=== PATIENT | female | born 1945 | race Caucasian/White ===

== ENCOUNTER 2017-02-13 07:35 | Day surgery (SDC) | payer MEDICARE ==
[2017-02-06 15:25] VITALS: BMI 26.6
[~2017-02-13 07:35] MED LIST: DEXAMETHASONE SOD PHOSPHATE 10 MG/ML 1 ML VIAL IV ONE; HEPARIN SODIUM,PORCINE 5,000 UNIT/ML 1 ML VIAL SQ ONE; LACTATED RINGERS 1,000 ML IV SCH; LIDOCAINE 1% 20 ML VIAL (10MG/ML) FOR IV START INTRADERMA PRN; MIDAZOLAM 2 MG/2 ML VIAL IV PRN; ONDANSETRON 4 MG/2 ML VIAL IVP ONE; Pre Op ABX Message 1 EACH MISC MISCELLANE ONE; SCOPOLAMINE 1.5MG/72HR PATCH TRANSDERM ONE
[2017-02-13 08:28] VITALS: RESP 16
[2017-02-13] MEDS ORDERED: LIDOCAINE 1% 20 ML VIAL (10MG/ML) FOR IV START INTRADERMA ONE (09:10)
--- NOTE | 2017-02-13 09:13 | P.GSHP ---
History of Present Illness H&P Date: 02/13/17 Chief Complaint: Back lipoma This is a 71-year-old female who presents today for excision of a back lipoma. Patient has a 1 cm lipoma located in her mid left back. The lipomas causing some pain. Past Medical History Past Medical History: Hearing Disorder / Deafness, Rheumatoid Arthritis (RA) Additional Past Medical History / Comment(s): Dry eyes, perforated ear drums/ poor hearing bilaterally. History of Any Multi-Drug Resistant Organisms: None Reported Past Surgical History: Breast Surgery, Cholecystectomy, Ear Surgery, Hysterectomy, Orthopedic Surgery, Tonsillectomy, Tubal Ligation Additional Past Surgical History / Comment(s): Multiple ear and sinus surgeries , D&C, 2 breast lumpectomies, left rotator cuff surgery, colonoscopy X2. Eye surgery - lens implants. Additional Past Anesthesia/Blood Transfusion Reaction / Comment(s): Has had low BP after anesthesia in the past. Past Psychological History: No Psychological Hx Reported Smoking Status: Former smoker Past Alcohol Use History: Daily Additional Past Alcohol Use History / Comment(s): Smoked on and off for a couple yrs when really young, can't recall dates. Drinks 2 glasses of wine or has a shot of duane on most nights. Past Drug Use History: None Reported - Past Family History Brother(s) Family Medical History: Cancer Additional Family Medical History / Comment(s): Brain Cancer Medications and Allergies Home Medications Medication Instructions Recorded Confirmed Type Amitriptyline HCl [Elavil] 10 mg PO HS 07/05/14 02/13/17 History Calcium Carbonate/Vitamin D3 1 each PO DAILY 07/05/14 02/13/17 History [Calcium 600 + Vit D Tablet] Cholecalciferol [Vitamin D3] 1,000 unit PO DAILY 07/05/14 02/13/17 History Clotrimazole/Betameth Cream 1 applic TOPICAL BID PRN 07/05/14 02/13/17 History [Clotrimazole-Betamethasone Cream] Multivitamins, Thera [Multivitamin] 1 each PO DAILY@1200 07/05/14 02/06/17 History Zolpidem [Ambien] 5 mg PO HS 07/05/14 02/13/17 History Levofloxacin [Levaquin] 250 mg PO DAILY 02/06/17 02/13/17 History Loratadine [Claritin] 10 mg PO QAM 02/06/17 02/13/17 History Allergies Allergy/AdvReac Type Severity Reaction Status Date / Time amoxicillin trihydrate Allergy Unknown Verified 02/13/17 08:29 [From Augmentin] ceftriaxone [From Rocephin] Allergy Rash/Hives Verified 02/13/17 08:29 cefuroxime axetil Allergy Unknown Verified 02/13/17 08:29 [From Ceftin] cephalexin monohydrate Allergy Unknown Verified 02/13/17 08:29 [From Keflex] clarithromycin [From Biaxin] Allergy Unknown Verified 02/13/17 08:29 codeine Allergy Unknown Verified 02/13/17 08:29 cyclobenzaprine HCl Allergy Unknown Verified 02/13/17 08:29 [From Flexeril] doxycycline Allergy Unknown Verified 02/13/17 08:29 hydrocodone Allergy Unknown Verified 02/13/17 08:29 hydromorphone HCl Allergy Unknown Verified 02/13/17 08:29 [From Dilaudid] methotrexate Allergy Unknown Verified 02/13/17 08:29 morphine Allergy Unknown Verified 02/13/17 08:29 moxifloxacin HCl Allergy Unknown Verified 02/13/17 08:29 [From Avelox] Mushroom Allergy Swelling Verified 02/13/17 08:29 orphenadrine citrate Allergy Unknown Verified 02/13/17 08:29 [From Norflex] potassium clavulanate Allergy Unknown Verified 02/13/17 08:29 [From Augmentin] propoxyphene HCl Allergy Unknown Verified 02/13/17 08:29 [From Darvon] propoxyphene napsylate Allergy Unknown Verified 02/13/17 08:29 [From Darvocet-N] sulfamethoxazole Allergy Unknown Verified 02/13/17 08:29 [From Bactrim] tramadol Allergy Unknown Verified 02/13/17 08:29 trimethoprim [From Bactrim] Allergy Unknown Verified 02/13/17 08:29 venom-honey bee Allergy Unknown Verified 02/13/17 08:29 [bee venom (honey bee)] lartine Allergy Unknown Uncoded 02/13/17 08:29 Surgical - Exam Vital Signs Temp Pulse Resp BP Pulse Ox 98.1 F 61 16 111/68 100 02/13/17 08:23 02/13/17 08:23 02/13/17 08:23 02/13/17 08:23 02/13/17 08:23 - General well developed, no distress - Eyes PERRL - ENT normal pinna - Neck no masses - Respiratory normal expansion - Cardiovascular Rhythm: regular - Abdomen Abdomen: soft, non tender - Integumentary 1 cm back lipoma Assessment and Plan Plan: 1 cm back lipoma we'll perform excision.
[2017-02-13] MEDS ORDERED: ePHEDrine 50 MG/ML 1 ML AMP ONE (09:26)
[2017-02-13] MEDS ORDERED: SUCCINYLCHOLINE CHLORIDE 100 MG/5 ML SYR IV ONE (09:26)
[2017-02-13] MEDS ORDERED: fentaNYL (PF) 50 MCG/ML 2 ML AMP ONE (09:26)
[2017-02-13] MEDS ORDERED: LIDOCAINE 1% INJ 10MG/ML (20 ML MDV) ONE (09:26)
[2017-02-13] MEDS ORDERED: MIDAZOLAM 2 MG/2 ML VIAL ONE (09:26)
[2017-02-13] MEDS ORDERED: PROPOFOL 10 MG/ML 20 ML VIAL IV ONE (09:26)
[2017-02-13] MEDS ORDERED: BUPIVACAIN-EPI 0.5%-1:200,000 30 ML VIAL SQ ONE (09:53)
--- NOTE | 2017-02-13 10:07 | P.OP ---
Date of Procedure: 02/13/17 Preoperative Diagnosis: Back lipoma Postoperative Diagnosis: Back lipoma Procedure(s) Performed: Excision of back lipoma Implants: Anesthesia: TIFFANI Surgeon: Matthew Chiang Estimated Blood Loss (ml): 2 Pathology: other (Back lipoma) Condition: stable Disposition: PACU Indications for Procedure: Operative Findings: Description of Procedure: Patient's placed on the endoscopy table in the lateral position. She received general and treatment tube anesthesia. Her back was prepped and draped usual fashion. A skin incision was made over the lipoma. And then using blunt and sharp dissection electrocautery the lipoma was excised. The Bovie hemostasis. The lipoma measured approximately 2 cm diameter. The lipoma was sent to pathology. The skin was closed interrupted 3-0 Monocryl suture. Dermabond was applied. Patient sent to recovery in stable condition.
[2017-02-13 10:19] VITALS: TEMP 96.9
[2017-02-13 11:01] VITALS: BP 114/72; PULSE 74
== END 2017-02-13 11:16 | disposition home or self-care (01) ==
LOC: OR 07:35
PROVIDERS: ATTEND Surgery
DX: D17.1 Benign lipomatous neoplasm of skin and subcutaneous tissue of trunk (principal); H91.90 Unspecified hearing loss, unspecified ear; M06.9 Rheumatoid arthritis, unspecified; F39 Unspecified mood [affective] disorder; Z79.2 Long term (current) use of antibiotics; Z79.899 Other long term (current) drug therapy; Z88.1 Allergy status to other antibiotic agents; Z91.030 Bee allergy status; Z88.5 Allergy status to narcotic agent; Z88.2 Allergy status to sulfonamides; Z88.8 Allergy status to other drugs, medicaments and biological substances; Z91.018 Allergy to other foods; Z91.09 Other allergy status, other than to drugs and biological substances; Z87.891 Personal history of nicotine dependence
CPT/HCPCS: 88304; 21930; J2250; J1644; J1100; J2405; J2001; J3010; J0330; J2704

== ENCOUNTER 2017-04-16 06:27 | Day surgery (SDC) | payer MEDICARE ==
[2017-04-14 11:17] VITALS: BMI 26.1
[~2017-04-16 06:27] MED LIST changes: -DEXAMETHASONE SOD PHOSPHATE 10 MG/ML 1 ML VIAL IV ONE; -HEPARIN SODIUM,PORCINE 5,000 UNIT/ML 1 ML VIAL SQ ONE; -MIDAZOLAM 2 MG/2 ML VIAL IV PRN; -ONDANSETRON 4 MG/2 ML VIAL IVP ONE; -Pre Op ABX Message 1 EACH MISC MISCELLANE ONE; -SCOPOLAMINE 1.5MG/72HR PATCH TRANSDERM ONE
[2017-04-16 07:18] VITALS: TEMP 98.6
[2017-04-16] MEDS ORDERED: PROPOFOL 10 MG/ML 20 ML VIAL IV ONE (07:35)
--- NOTE | 2017-04-16 07:50 | P.GSHP ---
History of Present Illness H&P Date: 04/16/17 Chief Complaint: Screening colonoscopy This is a 71-year-old female for from Dr. Bandar Candelario. Patient safe for screening colonoscopy. Past Medical History Past Medical History: Hearing Disorder / Deafness, Rheumatoid Arthritis (RA) Additional Past Medical History / Comment(s): STATES ON ANTIBIOTICS R/T EAR AND SINUS INFECTION. Dry eyes, perforated ear drums/poor hearing bilaterally. History of Any Multi-Drug Resistant Organisms: None Reported Past Surgical History: Breast Surgery, Cholecystectomy, Ear Surgery, Hysterectomy, Orthopedic Surgery, Tonsillectomy, Tubal Ligation Additional Past Surgical History / Comment(s): Multiple ear and sinus surgeries , D&C, 2 breast lumpectomies, left rotator cuff surgery, colonoscopy X2. Eye surgery - lens implants. SINUS SX X2, "LUMP" REMOVED FROM BACK BENIGN Additional Past Anesthesia/Blood Transfusion Reaction / Comment(s): Has had low BP after anesthesia in the past. HAD NAUSEA PRE OP Past Psychological History: No Psychological Hx Reported Smoking Status: Never smoker Past Alcohol Use History: Daily Additional Past Alcohol Use History / Comment(s): Smoked on and off for a couple yrs when really young, can't recall dates. HAS 2 GLASSES OF WINE NIGHTLY Past Drug Use History: None Reported - Past Family History Brother(s) Family Medical History: Cancer Additional Family Medical History / Comment(s): Brain Cancer Medications and Allergies Home Medications Medication Instructions Recorded Confirmed Type Amitriptyline HCl [Elavil] 10 mg PO HS 07/05/14 04/16/17 History Calcium Carbonate/Vitamin D3 1 each PO DAILY 07/05/14 04/16/17 History [Calcium 600 + Vit D Tablet] Multivitamins, Thera [Multivitamin] 1 each PO DAILY@1200 07/05/14 04/16/17 History Zolpidem [Ambien] 5 mg PO HS 07/05/14 04/16/17 History Loratadine [Claritin] 10 mg PO QAM 02/06/17 04/16/17 History Levofloxacin [Levaquin] 500 mg PO DAILY 04/14/17 04/16/17 History Allergies Allergy/AdvReac Type Severity Reaction Status Date / Time amoxicillin trihydrate Allergy Unknown Verified 04/14/17 11:12 [From Augmentin] ceftriaxone [From Rocephin] Allergy Rash/Hives Verified 04/14/17 11:12 cefuroxime axetil Allergy Unknown Verified 04/14/17 11:12 [From Ceftin] cephalexin monohydrate Allergy Unknown Verified 04/14/17 11:12 [From Keflex] clarithromycin [From Biaxin] Allergy Unknown Verified 04/14/17 11:12 codeine Allergy Unknown Verified 04/14/17 11:12 cyclobenzaprine Allergy Swelling Verified 04/16/17 07:07 [From Flexeril] doxycycline Allergy Unknown Verified 04/14/17 11:12 hydrocodone Allergy Unknown Verified 04/14/17 11:12 hydromorphone [From Dilaudid] Allergy Swelling Verified 04/16/17 07:07 methotrexate Allergy Unknown Verified 04/14/17 11:12 Methotrexate Analogues Allergy Swelling Verified 04/16/17 07:07 morphine Allergy Swelling Verified 04/16/17 07:08 moxifloxacin [From Avelox] Allergy Swelling Verified 04/16/17 07:07 Mushroom Allergy Swelling Verified 04/14/17 11:12 orphenadrine [From Norflex] Allergy Swelling Verified 04/16/17 07:07 potassium clavulanate Allergy Unknown Verified 04/14/17 11:12 [From Augmentin] propoxyphene [From Darvon] Allergy Swelling Verified 04/16/17 07:07 propoxyphene napsylate Allergy Unknown Verified 04/14/17 11:12 [From Darvocet-N] tramadol Allergy Unknown Verified 04/14/17 11:12 trimethoprim [From Bactrim] Allergy Unknown Verified 04/14/17 11:12 venom-honey bee Allergy Unknown Verified 04/14/17 11:12 [bee venom (honey bee)] lartine Allergy Unknown Uncoded 04/14/17 11:12 BANDAIDS AdvReac SKIN Uncoded 04/14/17 11:21 CHANGES Surgical - Exam Vital Signs Temp Pulse Resp BP Pulse Ox 98.6 F 59 L 14 105/71 98 04/16/17 07:16 04/16/17 07:16 04/16/17 07:16 04/16/17 07:16 04/16/17 07:16 - General well developed, no distress - Eyes PERRL - ENT normal pinna - Neck no masses - Respiratory normal expansion - Cardiovascular Rhythm: regular - Abdomen Abdomen: soft, non tender Assessment and Plan Plan: We will perform screening colonoscopy
--- NOTE | 2017-04-16 08:05 | P.OP ---
Date of Procedure: 04/16/17 Preoperative Diagnosis: Screening colonoscopy Postoperative Diagnosis: Internal hemorrhoids Procedure(s) Performed: Colonoscopy Implants: Anesthesia: MAC Surgeon: Matthew Chiang Pathology: none sent Condition: stable Disposition: PACU Indications for Procedure: Operative Findings: Description of Procedure: The patient's placed on the endoscopy table in the lateral position. She received IV sedation. Digital rectal exam was performed which revealed internal hemorrhoids. The flexible colonoscope was then placed patient anus passed throughout the entire colon. The ileocecal valve was visualized. The cecum, ascending and transverse colon appeared normal. The descending and; appeared normal. Scope was then brought back the rectum and this appeared normal. Scope was then brought back through the anus and internal hemorrhoids were noted. Scope was withdrawn for patient.
[2017-04-16 08:24] VITALS: RESP 16
[2017-04-16 08:42] VITALS: BP 98/63; PULSE 75
== END 2017-04-16 08:47 | disposition home or self-care (01) ==
LOC: ORWHC2ENDO 06:27 → MERGE 07:45 → ORWHC2ENDO 08:47
PROVIDERS: ATTEND Surgery
DX: Z12.11 Encounter for screening for malignant neoplasm of colon (principal); K64.8 Other hemorrhoids; Z87.891 Personal history of nicotine dependence; H91.90 Unspecified hearing loss, unspecified ear; M06.9 Rheumatoid arthritis, unspecified; Z79.2 Long term (current) use of antibiotics; Z79.899 Other long term (current) drug therapy; Z88.1 Allergy status to other antibiotic agents; Z91.030 Bee allergy status; Z88.5 Allergy status to narcotic agent; Z88.0 Allergy status to penicillin; Z88.8 Allergy status to other drugs, medicaments and biological substances; Z91.018 Allergy to other foods; Z91.09 Other allergy status, other than to drugs and biological substances
CPT/HCPCS: J2704; G0121; 45378

== ENCOUNTER → 2017-12-24 | Outpatient (CLI) | payer MEDICARE ==
[2017-12-24 09:35] VITALS: BP 113/81; PULSE 65; TEMP 97.6; BMI 20.8
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
== END | disposition home or self-care (01) ==
LOC: WWCWWP 09:16
PROVIDERS: ATTEND Surgery
DX: R92.8 Other abnormal and inconclusive findings on diagnostic imaging of breast (principal); Z53.9 Procedure and treatment not carried out, unspecified reason

== ENCOUNTER → 2017-12-24 | Outpatient (CLI) | payer MEDICARE | LOC: WWCWWP 09:20 | PROVIDERS: ATTEND Surgery | DX: N63.22 Unspecified lump in the left breast, upper inner quadrant (principal); Z53.9 Procedure and treatment not carried out, unspecified reason ==

== ENCOUNTER → 2017-12-28 | Day surgery (SDC) | payer MEDICARE ==
[2017-12-28 11:20] VITALS: RESP 16; TEMP 97.9; BMI 25.6
[2017-12-28 13:17] VITALS: BP 145/79; PULSE 54
--- NOTE | 2017-12-28 16:09 | USB ---
EXAMINATION TYPE: US biopsy breast VAD LT, MG diagnostic mammo LT wo CAD DATE OF EXAM: 12/28/2017 CLINICAL HISTORY: 72-year-old female N63 BREAST LUMP/MASS. TECHNIQUE: Ultrasound guided core biopsy of left breast. COMPARISON: 11/27/2017 FINDINGS: The procedure of ultrasound guided core biopsy was explained to the patient. Benefits, alternatives, and risks were discussed. An informed consent was then obtained. The patient was placed in supine positioning for imaging and for the procedure. The overlying skin was prepped and draped in usual sterile fashion. Lidocaine buffered with bicarbonate was used as anesthetic into the skin and subcutaneous tissue up to area of concern in the 10:00 left breast. Under ultrasound guidance, a 13-gauge vacuum-assisted mammotome Elite biopsy gun device was used to obtain 5 core samples. Following this, a coil clip was left in lesion. The patient tolerated the procedure well without any immediate complication. The patient was kept in the radiology department for short stay after the procedure and then discharged home in stable condition. Post procedure mammogram shows the microclip far peripherally in the 10:00 left breast at the patient's palpable site. IMPRESSION: Successful, uncomplicated ultrasound guided core biopsy of palpable lesion left breast, suspected lipoma, full pathology results to follow. Pathology Results: Benign LEFT BREAST, ULTRASOUND GUIDED CORE BIOPSY: FEATURES CONSISTENT WITH LIPOMA. BREAST ELEMENTS ARE NOT IDENTIFIED. Recommendation Follow up ultrasound of the left breast in 6 months. RAYMONDD
== END | disposition home or self-care (01) ==
LOC: RADUSWWP 10:55
PROVIDERS: ATTEND Surgery
DX: N63.20 Unspecified lump in the left breast, unspecified quadrant (principal); R92.8 Other abnormal and inconclusive findings on diagnostic imaging of breast
CPT/HCPCS: 88305; 77065; 19083; A4648; J2001

== ENCOUNTER → 2018-01-07 | Outpatient (CLI) | payer MEDICARE ==
[2018-01-07 11:27] VITALS: BP 120/81; PULSE 65; BMI 26.3
--- NOTE | 2018-01-07 12:04 | P.GSHP ---
History of Present Illness H&P Date: 01/07/18 The patient is a 72-year-old white female who presents status post core biopsy of an area of concern in the left breast. The patient states in approximately October she noted a palpable abnormality in her left breast which had not been present prior. This area was painful and she subsequently underwent radiographic evaluation. Radiographic evaluation was recommended she undergo core biopsy of the palpable area. Pathology was consistent with a lipoma. The patient has no other masses in her breast and no nipple discharge or changes. Past surgical history: 1. 18 ear surgeries 2. 2 sinus surgeries 3. Shoulder surgery 4.Cholecystectomy 5. Hysterectomy 6. Tonsillectomy Past medical history: 1. ear ruptured ear drums, perforated now, decreased hearing 2. sinus surgeries times two Review of systems: HEENT: Multiple uterine surgeries related to perforated eardrums, sinus surgery 2 Lungs: None Heart: Negative GI: Negative : Negative Musculoskeletal: Arthritis Skin: Negative Neurologic: Negative Menarche: 11 years old Pregnancies: 1 at the age of 30 and not breast-feed Menopause: Hysterectomy 1979 ovaries were not removed patient was approximately late 30s BCP/Hormones: Has -control pills at a young age regular periods, used to hormones for a short time caused depression so stopped - Constitutional Constitutional: Reports as per HPI - EENT Ears, nose, mouth and throat: Reports as per HPI - Breasts Breasts: bilateral: as per HPI - Cardiovascular Cardiovascular: Denies chest pain, Denies shortness of breath - Respiratory Respiratory: Denies cough, Denies 7 - Gastrointestinal Gastrointestinal: Denies abdominal pain, Denies diarrhea, Denies nausea, Denies vomiting - Musculoskeletal Musculoskeletal: Reports as per HPI - Integumentary Integumentary: Reports as per HPI - Neurological Neurological: Reports as per HPI - Psychiatric Psychiatric: Denies anxiety, Denies depression - Endocrine Endocrine: Denies fatigue, Denies weight change - Hematologic/Lymphatic Comment: no blood thinners - Allergic/Immunologic Allergic/Immunologic: Reports seasonal allergies Past Medical History Past Medical History: Hearing Disorder / Deafness, Rheumatoid Arthritis (RA) Additional Past Medical History / Comment(s): Chronic ear/sinus problems/ infections. Dry eyes, perforated ear drums/poor hearing bilaterally. History of Any Multi-Drug Resistant Organisms: None Reported Past Surgical History: Breast Surgery, Cholecystectomy, Ear Surgery, Hysterectomy, Orthopedic Surgery, Tonsillectomy, Tubal Ligation Additional Past Surgical History / Comment(s): Multiple ear and sinus surgeries , D&C, 2 breast lumpectomies, left rotator cuff surgery, colonoscopy X2. Eye surgery - lens implants. Benign cyst removed from back. Gall bladder removed 1972 Past Anesthesia/Blood Transfusion Reactions: Previous Problems w/ Anesthesia Additional Past Anesthesia/Blood Transfusion Reaction / Comment(s): Has had low BP after anesthesia in the past. Past Psychological History: No Psychological Hx Reported Smoking Status: Never smoker Past Alcohol Use History: Daily Additional Past Alcohol Use History / Comment(s): HAS 2 GLASSES OF WINE NIGHTLY Past Drug Use History: None Reported - Past Family History Brother(s) Family Medical History: Cancer Additional Family Medical History / Comment(s): Brain Cancer Medications and Allergies Home Medications Medication Instructions Recorded Confirmed Type Amitriptyline HCl [Elavil] 10 mg PO HS 07/05/14 01/07/18 History Multivitamins, Thera [Multivitamin] 1 each PO DAILY@1200 07/05/14 01/07/18 History Zolpidem [Ambien] 5 mg PO HS 07/05/14 01/07/18 History Loratadine [Claritin] 10 mg PO QAM 02/06/17 01/07/18 History Cholecalciferol [Vitamin D3] 1 tab PO DAILY 12/25/17 01/07/18 History Allergies Allergy/AdvReac Type Severity Reaction Status Date / Time acetaminophen Allergy Unknown Verified 12/29/17 16:07 [From Darvocet-N] adhesive tape Allergy Rash/Hives Verified 12/29/17 16:07 amoxicillin [From Augmentin] Allergy Unknown Verified 12/29/17 16:07 cefuroxime [From Ceftin] Allergy Unknown Verified 12/29/17 16:07 cephalexin [From Keflex] Allergy Unknown Verified 12/29/17 16:07 clarithromycin [From Biaxin] Allergy Unknown Verified 12/29/17 16:07 clavulanic acid Allergy Unknown Verified 12/29/17 16:07 [From Augmentin] codeine Allergy Unknown Verified 12/29/17 16:07 cyclobenzaprine Allergy Unknown Verified 12/29/17 16:07 [From Flexeril] doxycycline Allergy Unknown Verified 12/29/17 16:07 hydrocodone Allergy Unknown Verified 12/29/17 16:07 hydromorphone [From Dilaudid] Allergy Unknown Verified 12/29/17 16:07 methotrexate Allergy Unknown Verified 12/29/17 16:07 morphine Allergy Unknown Verified 12/29/17 16:07 moxifloxacin [From Avelox] Allergy Unknown Verified 12/29/17 16:07 mushroom Allergy Unknown Verified 12/29/17 16:07 orphenadrine [From Norflex] Allergy Unknown Verified 12/29/17 16:07 propoxyphene [From Darvon] Allergy Unknown Verified 12/29/17 16:07 sulfamethoxazole Allergy Unknown Verified 12/29/17 16:07 [From Bactrim] tramadol Allergy Unknown Verified 12/29/17 16:07 trimethoprim [From Bactrim] Allergy Unknown Verified 12/29/17 16:07 bandaids Allergy Rash/Hives Uncoded 12/29/17 16:07 bee stings Allergy Unknown Uncoded 12/29/17 16:07 lartine Allergy Unknown Uncoded 12/29/17 16:07 Surgical - Exam Vital Signs Pulse BP 65 120/81 01/07/18 11:22 01/07/18 11:22 - General well developed, well nourished, no distress - Eyes normal ocular movement - ENT normal nares, decreased hearing, dentures - Neck no masses, trachea midline, no lymphadectomy, no venous distension - Respiratory normal respiratory effort, clear to auscultation - Cardiovascular Rhythm: regular Heart Sounds: normal: S1, S2 - Abdomen Abdomen: soft, non tender, no guarding, no rigid, no rebound - Neurologic normal coordination - Musculoskeletal normal gait, normal posture - Psychiatric oriented to time, oriented to person, oriented to place, speech is normal, memory intact Breast examination: Bypass: Multiple positional exam no dominant masses or nodules of concern right axilla no adenopathy of concern Left breast: Palpable abnormality at the 9 o'clock position consistent with the area which was biopsied via core biopsy No axillary adenopathy of concern in the left Results core biopsy pathology reviewed with patient Assessment and Plan Assessment: Impression/plan: 1. Left breast mass core biopsy consistent with lipoma 2. Decreased hearing Plan: 1. The area in the left breast is painful for the patient and Onset. It is possible and worrisome for the patient. After discussion that this is not a cancer and who did not progress to a cancer the patient would like this to be removed. She will therefore be scheduled for a left breast excisional biopsy The skin benefits of the procedure discussed with the patient and we will plan to proceed. cc: Dr. Ruelas
--- NOTE | 2018-01-07 12:11 | P.PN ---
Progress Note - Text Progress Note Date: 01/07/18 Risks and benefits were discussed with the patient regarding left breast biopsy. The area is somewhat difficult to palpate although the patient feels that without any difficulty. After discussion I have suggested that we do a needle localization of the area and I will take that which I feel as well as the area of Localization to assure the area of concern is removed. The patient concurs and we will proceed with excisional biopsy. Again I discussed with her that this is not cancer will not turn into cancer however it is symptomatic for her and she wishes it to be removed.
== END | disposition home or self-care (01) ==
LOC: WWCWWP 11:18
PROVIDERS: ATTEND Surgery
DX: Z53.9 Procedure and treatment not carried out, unspecified reason (principal)

== ENCOUNTER 2018-01-19 06:59 | Day surgery (SDC) | payer MEDICARE ==
[2018-01-12 11:40] VITALS: BMI 25.5
[~2018-01-19 06:59] MED LIST changes: -LACTATED RINGERS 1,000 ML IV SCH; -LIDOCAINE 1% 20 ML VIAL (10MG/ML) FOR IV START INTRADERMA PRN; +ONDANSETRON 4 MG/2 ML VIAL IVP PRN; +Pre Op ABX Message 1 EACH MISC MISCELLANE ONE; +fentaNYL (PF) 50 MCG/ML 2 ML AMP IV PRN
[2018-01-19 07:49] VITALS: RESP 16; TEMP 97.6
[2018-01-19] MEDS: LACTATED RINGERS 1,000 ML IV SCH ×2 (07:49→08:30)
[2018-01-19] MEDS ORDERED: ONDANSETRON 4 MG/2 ML VIAL IVP ONE (07:52)
[2018-01-19] MEDS ORDERED: DEXAMETHASONE SOD PHOSPHATE 10 MG/ML 1 ML VIAL IV ONE (07:55)
[2018-01-19] MEDS ORDERED: LIDOCAINE 1% INJ 10MG/ML (20 ML MDV) ONE (08:33)
[2018-01-19] MEDS ORDERED: MIDAZOLAM 2 MG/2 ML VIAL ONE (08:33)
[2018-01-19] MEDS ORDERED: fentaNYL (PF) 50 MCG/ML 2 ML AMP ONE (08:33)
[2018-01-19] MEDS ORDERED: ePHEDrine SULFATE/0.9% NACL/PF 50 MG/5 ML SYRINGE IV ONE (08:33)
[2018-01-19] MEDS ORDERED: PROPOFOL 10 MG/ML 20 ML VIAL IV ONE (08:33)
[2018-01-19] MEDS ORDERED: HEPARIN SODIUM,PORCINE 5,000 UNIT/ML 1 ML VIAL SQ ONE (08:33)
[2018-01-19] MEDS ORDERED: LIDOCAINE 1% (PF) 10 MG/ML (30 ML SDV) SQ ONE ×2 (08:45)
--- NOTE | 2018-01-19 09:31 | P.OP ---
Date of Procedure: 01/19/18 Preoperative Diagnosis: Palpable mass left breast, biopsy consistent with lipoma however painful and increasing in size Postoperative Diagnosis: Same Procedure(s) Performed: Excision probable change left breast Anesthesia: MAC Surgeon: Brit Rao Carpet Inspector #1: Ar Terry Estimated Blood Loss (ml): 5 IV fluids (ml): 400 Pathology: other (lipoma, breast tissue) Condition: stable Disposition: PACU Indications for Procedure: Probable mass left breast increasing in size Operative Findings: Lipomatous-like tissue Description of Procedure: The patient was taken to the operating room and following sedation the left breast was prepped and draped in a sterile fashion. One percent lidocaine was used to anesthetize the area of concern. Approximately 20 mL were used in total. Incision was made over the palpable abnormality. This was carried through the skin and subcutaneous tissue. It appeared to be a lipoma was identified. The area of excision was approximately 4 cm x 3 cm. The excision was carried down to the pectoralis major muscle. After assured that hemostasis was obtained the wound was well irrigated. The deep tissues were closed using 3 -0 Vicryl suture. The subcutaneous tissues closed using 3-0 Vicryl. Skin was closed using a 4-0 subcuticular Monocryl suture. Steri-Strips were not applied as the patient stated she had an ALLERGIC reaction to Steri-Strips. A sterile dressing was applied. The patient tolerated the procedure in stable condition. The specimen was painted for orientation and sent to pathology. The patient tolerated the procedure in stable condition.
--- NOTE | 2018-01-19 09:34 | P.DS ---
Providers Attending physician: Brit Rao Primary care physician: Bandar Lui Plan - Discharge Summary New Discharge Prescriptions: No Action Multivitamins, Thera [Multivitamin] 1 each PO DAILY@1200 Amitriptyline HCl [Elavil] 10 mg PO 1600 Loratadine [Claritin] 10 mg PO QAM Cholecalciferol [Vitamin D3] 1,000 units PO DAILY Zolpidem [Ambien] 5 mg PO HS Discharge Medication List Amitriptyline HCl [Elavil] 10 mg PO 1600 07/05/14 [History] Multivitamins, Thera [Multivitamin] 1 each PO DAILY@1200 07/05/14 [History] Loratadine [Claritin] 10 mg PO QAM 02/06/17 [History] Cholecalciferol [Vitamin D3] 1,000 units PO DAILY 12/25/17 [History] Zolpidem [Ambien] 5 mg PO HS 01/12/18 [History] Follow up Appointment(s)/Referral(s): Brit Rao MD [STAFF PHYSICIAN] - 3 Days Activity/Diet/Wound Care/Special Instructions: Do not drive today Patient may shower after 48 hours Wear bra at all times except in shower Discharge Disposition: HOME SELF-CARE
[2018-01-19 10:00] VITALS: BP 115/70; PULSE 80
== END 2018-01-19 10:29 | disposition home or self-care (01) ==
LOC: OR 06:59
PROVIDERS: ATTEND Surgery
DX: N60.32 Fibrosclerosis of left breast (principal); N60.22 Fibroadenosis of left breast; N60.92 Unspecified benign mammary dysplasia of left breast; N60.82 Other benign mammary dysplasias of left breast; R92.1 Mammographic calcification found on diagnostic imaging of breast; H91.93 Unspecified hearing loss, bilateral; M06.9 Rheumatoid arthritis, unspecified; H72.90 Unspecified perforation of tympanic membrane, unspecified ear; J30.2 Other seasonal allergic rhinitis; Z79.899 Other long term (current) drug therapy; Z88.6 Allergy status to analgesic agent; Z88.0 Allergy status to penicillin; Z88.8 Allergy status to other drugs, medicaments and biological substances; Z91.048 Other nonmedicinal substance allergy status; Z88.1 Allergy status to other antibiotic agents; Z88.5 Allergy status to narcotic agent; Z88.2 Allergy status to sulfonamides; Z91.018 Allergy to other foods; Z91.030 Bee allergy status; Z98.51 Tubal ligation status
CPT/HCPCS: 88307; 19120; J2250; J1100; J2405; J2001 ×2; J3010; J2704

== ENCOUNTER → 2018-01-22 | Outpatient (CLI) | payer MEDICARE ==
[2018-01-22 12:48] VITALS: BP 142/68; PULSE 61; BMI 25.4
--- NOTE | 2018-01-22 13:10 | P.PN ---
Progress Note - Text Progress Note Date: 01/22/18 postoperative visit: Patient is status post op day 3 left breast biopsy for an enlarging lipoma. Pathology revealed fibrocystic breast changes. The patient states that she has some soreness in her breastpost operatively, and she was noted to have some ecchymosis inferior to the incision site. Pathology was reviewed and it is benign fibrocystic disease. Physical exam: Ecchymosis inferior to incision site otherwise no evidence of infection Impression/plan: 1. Fibrocystic breast disease 2. Left breast mammogram and physician exam in 6 months Cc: Dr. Ruelas
== END | disposition home or self-care (01) ==
LOC: WWCWWP 11:44
PROVIDERS: ATTEND Surgery
DX: N60.12 Diffuse cystic mastopathy of left breast (principal)

== ENCOUNTER 2018-05-02 04:12 | Emergency (ER) | payer MEDICARE ==
[2018-05-02 04:25] VITALS: RESP 16
--- NOTE | 2018-05-02 05:10 | XR ---
EXAM: XR Left Foot Complete, 3 or More Views CLINICAL HISTORY: Reason: Pain TECHNIQUE: Frontal, lateral and oblique views of the left foot. COMPARISON: No relevant prior studies available. FINDINGS: Bones/joints: Unremarkable. No acute fracture. No dislocation. Soft tissues: Soft tissue swelling adjacent to the lateral malleolus. Small osseous density suggested adjacent to the tip of the fibula possibility of avulsion fracture cannot be excluded. Small osseous density lateral margin of the cuboid. Possible avulsion fracture cannot be excluded. Clinical correlation is required. The ankle mortise is well-preserved. No evidence for fracture the calcaneus or talus. No evidence for fracture the metatarsals or phalanges IMPRESSION: Soft tissue swelling adjacent to lateral malleolus with a small osseous density adjacent to the tip of the fibula raising the possibility of a avulsion fracture. Small osseous density adjacent to lateral margin of the cuboid bone. This raises the possibility of avulsion injury. No other fractures identified
--- NOTE | 2018-05-02 05:13 | XR ---
EXAM: XR Left Ankle Complete, 3 or More Views CLINICAL HISTORY: Reason: Pain TECHNIQUE: Frontal, lateral and oblique views of the left ankle. COMPARISON: No relevant prior studies available. FINDINGS: Bones/joints: Soft tissue swelling adjacent to the lateral malleolus with a small ossific density adjacent to the fibular this raising the possibility of an avulsion fracture. The ankle mortise is preserved. Again noted is a small osseous density adjacent to the lateral margin of cuboid raises the possibility of avulsion fracture. The posterior and medial malleolus are well aligned. The ankle mortise is maintained. The talus and calcaneus appear intact. The subtalar joint is intact. IMPRESSION: Soft tissue swelling lateral malleolus small ossific density adjacent distal fibular raising the possibility of avulsion fracture. Unknown chronicity new line osseous density adjacent to the lateral margin of the cuboid bone. Possibility of avulsion fracture cannot be excluded. No other fractures are identified. The ankle mortise is maintained
--- NOTE | 2018-05-02 05:23 | ED ---
Lower Extremity Injury HPI - General Chief Complaint: Extremity Injury, Lower Stated Complaint: Ankle Injury Time Seen by Provider: 05/02/18 04:47 Source: patient Mode of arrival: wheelchair Limitations: physical limitation - History of Present Illness Initial Comments: This patient is a 72-year-old woman who presents to be evaluated for left ankle and foot pain. She states this developed after she had a fall tonight. She states she had gotten out of bed around 3:30 and then tripped over a cord. She believes she may have inverted ankle. She indicates pain at the lateral malleolus and also to the mid foot. She denies previous ankle or foot surgery. No weakness or numbness. MD Complaint: ankle injury, foot injury Onset/Timin -: hour(s) Injury: Ankle: Left, Foot: Left Type of Injury: inversion Place: home Severity: moderate Improves With: nothing Worsens With: weight bearing Context: fall Associated Symptoms: swelling, able to partially bear weight - Related Data Home Medications Medication Instructions Recorded Confirmed Amitriptyline HCl [Elavil] 10 mg PO 1600 07/05/14 01/22/18 Multivitamins, Thera [Multivitamin] 1 each PO DAILY@1200 07/05/14 01/22/18 Loratadine [Claritin] 10 mg PO QAM 02/06/17 01/22/18 Cholecalciferol [Vitamin D3] 1,000 units PO DAILY 12/25/17 01/22/18 Zolpidem [Ambien] 5 mg PO HS 01/12/18 01/22/18 Allergies Allergy/AdvReac Type Severity Reaction Status Date / Time acetaminophen Allergy Unknown Verified 01/12/18 11:25 [From Darvocet-N] adhesive tape Allergy Rash/Hives Verified 01/12/18 11:25 amoxicillin [From Augmentin] Allergy Unknown Verified 01/12/18 11:25 ceftriaxone [From Rocephin] Allergy Unknown Verified 01/12/18 11:27 cefuroxime [From Ceftin] Allergy Unknown Verified 01/12/18 11:25 cephalexin [From Keflex] Allergy Unknown Verified 01/12/18 11:25 clarithromycin [From Biaxin] Allergy Unknown Verified 01/12/18 11:25 clavulanic acid Allergy Unknown Verified 01/12/18 11:25 [From Augmentin] clindamycin Allergy eyes and Verified 01/12/18 11:26 throat itching, hurt to swallow codeine Allergy Unknown Verified 01/19/18 07:43 cyclobenzaprine Allergy Unknown Verified 01/12/18 11:25 [From Flexeril] doxycycline Allergy Unknown Verified 01/12/18 11:25 hydrocodone Allergy Unknown Verified 01/12/18 11:25 hydromorphone [From Dilaudid] Allergy Unknown Verified 01/12/18 11:25 meperidine [From Demerol] Allergy Unknown Verified 01/19/18 07:43 methotrexate Allergy Unknown Verified 01/12/18 11:25 morphine Allergy Unknown Verified 01/12/18 11:25 moxifloxacin [From Avelox] Allergy Unknown Verified 01/12/18 11:25 mushroom Allergy Unknown Verified 01/12/18 11:25 orphenadrine [From Norflex] Allergy Unknown Verified 01/12/18 11:25 propoxyphene [From Darvon] Allergy Unknown Verified 01/12/18 11:25 sulfamethoxazole Allergy Unknown Verified 01/12/18 11:25 [From Bactrim] tramadol Allergy Unknown Verified 01/12/18 11:25 trimethoprim [From Bactrim] Allergy Unknown Verified 01/12/18 11:25 bandaids Allergy Rash/Hives Uncoded 01/12/18 11:25 bee stings Allergy Unknown Uncoded 01/12/18 11:25 lartine Allergy Unknown Uncoded 01/12/18 11:25 steri-strips Allergy blister Uncoded 01/12/18 11:25 Review of Systems ROS Statement: Those systems with pertinent positive or pertinent negative responses have been documented in the HPI. ROS Other: All systems not noted in ROS Statement are negative. Constitutional: Denies: weakness Respiratory: Denies: dyspnea Cardiovascular: Denies: chest pain Gastrointestinal: Denies: abdominal pain Musculoskeletal: Reports: as per HPI, joint swelling, arthralgia. Denies: back pain Skin: Denies: lesions Neurological: Denies: weakness, numbness, paresthesias Past Medical History Past Medical History: Hearing Disorder / Deafness, Rheumatoid Arthritis (RA) Additional Past Medical History / Comment(s): Chronic ear/sinus problems/ infections. Dry eyes, perforated ear drums/poor hearing bilaterally. History of Any Multi-Drug Resistant Organisms: None Reported Past Surgical History: Breast Surgery, Cholecystectomy, Ear Surgery, Hysterectomy, Orthopedic Surgery, Tonsillectomy, Tubal Ligation Additional Past Surgical History / Comment(s): 18 ear surgeries(maye), sinus surgeries x2, D&C, maye breast lumpectomies, left rotator cuff surgery, colonoscopy. maye cataracts. Benign cyst removed from back, maye breast biopsies Past Anesthesia/Blood Transfusion Reactions: Previous Problems w/ Anesthesia, Family History of Problems w/ Anesthesia Additional Past Anesthesia/Blood Transfusion Reaction / Comment(s): Has had low BP after anesthesia in the past. mother got pneumonia post op Past Psychological History: No Psychological Hx Reported Smoking Status: Never smoker Past Alcohol Use History: Daily Past Drug Use History: None Reported - Past Family History Brother(s) Family Medical History: Cancer Additional Family Medical History / Comment(s): Brain Cancer General Exam Limitations: physical limitation General appearance: alert, in no apparent distress Head exam: Present: atraumatic, normocephalic Neck exam: Present: normal inspection, full ROM Left Hip exam: Present: normal inspection, full ROM Upper Leg exam: Present: normal inspection, full ROM Knee exam: Present: normal inspection, full ROM Lower Leg exam: Present: normal inspection, full ROM Ankle exam: Present: full ROM, tenderness, swelling (Left lateral malleolus). Absent: abrasion, laceration, ecchymosis, deformity, crepitus, dislocation, erythema Foot/Toe exam: Present: tenderness, swelling (Lateral aspect left foot). Absent : full ROM, abrasion, laceration, ecchymosis, deformity, crepitus, dislocation, erythema, amputation, puncture wound, foreign body, calcaneal tenderness, tenderness at base of 5th metatarsal Neurovascular tendon exam: Present: no vascular compromise. Absent: motor deficit, sensory deficit Neurological exam: Present: alert. Absent: motor sensory deficit Skin exam: Present: warm, dry, intact, normal color. Absent: rash Course Vital Signs 05/02/18 04:19 Temperature 96.8 F L Pulse Rate 74 Respiratory 16 Rate Blood Pressure 113/67 O2 Sat by Pulse 99 Oximetry Disposition Clinical Impression: Ankle fracture Disposition: HOME SELF-CARE Condition: Fair Instructions: Ankle Fracture (ED), Foot Fracture in Adults (ED) Is patient prescribed a controlled substance at d/c from ED?: No Referrals: Bandar Liu DO [Primary Care Provider] - 1-2 days Rufino Mckeon DO [Doctor of Osteopathic Medicine] - 1-2 days
[2018-05-02 05:32] VITALS: BP 123/51; PULSE 59; TEMP 98.2
== END 2018-05-02 05:50 | disposition home or self-care (01) ==
LOC: EC 04:12
DX: S82.892A Other fracture of left lower leg, initial encounter for closed fracture (principal); M06.9 Rheumatoid arthritis, unspecified; Z79.899 Other long term (current) drug therapy; Z88.6 Allergy status to analgesic agent; Z91.048 Other nonmedicinal substance allergy status; Z88.0 Allergy status to penicillin; Z88.1 Allergy status to other antibiotic agents; Z88.5 Allergy status to narcotic agent; Z88.8 Allergy status to other drugs, medicaments and biological substances; Z91.018 Allergy to other foods; Z88.2 Allergy status to sulfonamides; Z91.030 Bee allergy status; W01.0XXA Fall on same level from slipping, tripping and stumbling without subsequent striking against object, initial encounter; Y92.009 Unspecified place in unspecified non-institutional (private) residence as the place of occurrence of the external cause
CPT/HCPCS: 99283

== ENCOUNTER → 2018-07-26 | Outpatient (CLI) | payer MEDICARE ==
--- NOTE | 2018-07-26 14:20 | MM ---
Reason for exam: follow-up at short interval from prior study. Last mammogram was performed 7 months ago. History: Family history of breast cancer in 2 maternal aunts. Benign US biopsy breast VAD LT of the left breast, December 28, 2017. Physical Findings: Nurse did not find any significant physical abnormalities on exam. MG 3D Diag Mammo W/Cad LT CC and MLO view(s) were taken of the left breast. Prior study comparison: December 28, 2017, left breast MG diagnostic mammo LT wo CAD. November 27, 2017, mammogram. June 20, 2016, mammogram. May 09, 2015, mammogram. The breast tissue is heterogeneously dense. This may lower the sensitivity of mammography. Previous mammotome biopsy in the right breast, medial with adjacent new density. Suspect scar from excision 6 months ago. 6 month follow up recommended. Stable anterior lateral asymmetric density. Suggestion of some posterior lateral underlying nodularity at a site of dense tissues. 6 month follow up recommended. These results were verbally communicated with the patient and result sheet given to the patient on 07/26/18. ASSESSMENT: Probably benign, BI-RAD 3 RECOMMENDATION: Follow-up diagnostic mammogram of both breasts in 4 months. Back on schedule. (Additional short interval follow up left breast following excision. Total 1 year followup) RENAE
== END ==
LOC: RADMAMWWP 12:24
PROVIDERS: ATTEND Surgery
DX: R92.8 Other abnormal and inconclusive findings on diagnostic imaging of breast (principal)
CPT/HCPCS: 77065; G0279; 77061

== ENCOUNTER → 2019-03-25 | Outpatient (CLI) | payer MEDICARE ==
--- NOTE | 2019-03-25 12:13 | CT ---
EXAMINATION TYPE: CT sinus wo con DATE OF EXAM: 03/25/2019 COMPARISON: 02/21/2013 HISTORY: RIDDLE AND EAR PAIN CT DLP: 618.1 mGycm. Automated Exposure Control for Dose Reduction was Utilized. TECHNIQUE: CT scan of the sinuses is performed without contrast, axial images are obtained, coronal r eformatted images are also reviewed. FINDINGS: Postsurgical changes of bilateral antrostomy with redemonstration of small elliptical left maxillary sinus nasal polyp measuring 1.2 cm with previous measurement of 0.9 cm. Additional small po lyp is seen protruding into the right maxillary sinus measuring up to 1.2 cm in AP dimension. These f indings have slightly increased when compared to prior exam. Maxillary sinuses and sphenoid sinuses are well aerated. Partial opacification of the bilateral ethmo id air cells. Right frontal sinuses aplastic. Nasal septum is slightly deviated to the right. Visualized portion of mastoid air cells show no abnormal opacification. The globes are intact bilate rally. IMPRESSION: No air-fluid levels or bony destruction. Increasing size of left maxillary and right maxillary nasal polyps arising from the inferior nasal co ncha when compared to 02/21/2013. Further evaluation may be obtained with contrast-enhanced examinatio n or tissue sampling.
--- NOTE | 2019-03-25 15:29 | CT ---
EXAMINATION TYPE: CT iac wo con DATE OF EXAM: 03/25/2019 COMPARISON: 10/25/2010 HISTORY: RIDDLE AND EAR PAIN CT DLP: 142.7mGycm Automated exposure control for dose reduction was used. FINDINGS: The external auditory canals are patent bilaterally. Interval resection of inferior lateral right mastoid air cells with a few opacified air cells inferiorly. The middle ear ossicles are symme tric and unremarkable. There is no evidence of suspicious surrounding soft tissue density to suggest cholesteatoma. The scutum is preserved bilaterally. The cochlea and the semicircular canals are sy mmetric and unremarkable. Vestibular aqueduct and internal carotid canal appear unremarkable. Modera te asymmetric osteoarthritic changes seen in the right temporomandibular joint. IMPRESSION: Partial right mastoidectomy with a few opacified air cells near the mastoid tip. 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
== END ==
LOC: RADCTMAIN 11:15
PROVIDERS: ATTEND Otolaryngology Otolaryngology/Facial Plastic Surgery
DX: J33.9 Nasal polyp, unspecified (principal); M19.90 Unspecified osteoarthritis, unspecified site; R93.89 Abnormal findings on diagnostic imaging of other specified body structures; Z90.89 Acquired absence of other organs
CPT/HCPCS: 70480; 70486

== ENCOUNTER → 2019-06-17 | Outpatient (CLI) | payer MEDICARE ==
[2019-06-17 14:34] VITALS: BP 122/73; PULSE 63; RESP 18; TEMP 97.7; BMI 25.9
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
== END | disposition home or self-care (01) ==
LOC: WWCWWP 13:35
PROVIDERS: ATTEND Surgery
DX: Z53.9 Procedure and treatment not carried out, unspecified reason (principal)

== ENCOUNTER → 2019-07-25 | Outpatient (CLI) | payer MEDICARE ==
--- NOTE | 2019-07-25 10:37 | MM ---
Reason for exam: additional evaluation requested from prior study. Last mammogram was performed 1 year ago. History: Family history of breast cancer in 2 maternal aunts. Benign US biopsy breast VAD LT of the left breast, December 28, 2017. Benign excisional biopsy of the left breast, 2017. Physical Findings: Nurse did not find any significant physical abnormalities on exam. MG Diagnostic Mammo w CAD MIDLRED Bilateral CC and MLO view(s) were taken. Prior study comparison: July 26, 2018, left breast MG 3d diag mammo w/cad LT. December 28, 2017, left breast MG diagnostic mammo LT wo CAD. The breast tissue is heterogeneously dense. This may lower the sensitivity of mammography. Benign appearing bilateral calcifications. Post surgical change on the left. Left biopsy marker noted. These results were verbally communicated with the patient and result sheet given to the patient on 07/25/19. ASSESSMENT: Benign, BI-RAD 2 RECOMMENDATION: Routine screening mammogram of both breasts in 1 year.
--- NOTE | 2019-07-25 10:38 | USB ---
Reason for exam: additional evaluation requested from prior study. History: Family history of breast cancer in 2 maternal aunts. Benign US biopsy breast VAD LT of the left breast, December 28, 2017. Benign excisional biopsy of the left breast, 2018. US Breast LT Left complete breast ultrasound includes all four quadrants, the retroareolar region and axilla. Finding demonstrates a 1.3 x 1.1 x 0.2cm oval, solid, hypoechoic, vascular scar at 10 o'clock and a 1.1 x 1.3 x 0.7cm oval node at the axilla. These results were verbally communicated with the patient and result sheet given to the patient on 07/25/19. ASSESSMENT: Benign, BI-RAD 2 RECOMMENDATION: Routine screening mammogram of both breasts in 1 year.
== END | disposition home or self-care (01) ==
LOC: RADMAMWWP 06:56
PROVIDERS: ATTEND Surgery
DX: R92.8 Other abnormal and inconclusive findings on diagnostic imaging of breast (principal)
CPT/HCPCS: 77066

== ENCOUNTER → 2019-07-29 | Outpatient (CLI) | payer MEDICARE ==
[2019-07-29 09:19] VITALS: BP 114/73; PULSE 70; RESP 18; TEMP 97.9
--- NOTE | 2019-07-29 09:34 | P.PN ---
Progress Note - Text Progress Note Date: 07/29/19 Janie is a 74-year-old white female who was recently seen complaining of some pain in the left breast. Since her last visit she has stopped caffeine intake, she is not eating any chocolate. She does not smoke and is not exposed to secondhand smoke. Additionally she was started primrose oil. She continues to have discomfort in the left breast. She states that the pain is in the 12 o'clock position. It intermittently spreads to the axilla. She has been exercising which brings it more to her attention. Recent mammogram performed on [id number] was benign by advanced to this was a bilateral mammogram. The patient had an ultrasound of the left breast and this revealed a 1.3 cm solid hypoechoic lesion and a 1.1 cm also noted in the axilla tissues were felt to be benign BIRADS 2 and routine mammogram of both breasts in 1 year was recommended. The patient does not feel any lumps masses or nodules in her breast. Patient is not have an examination today she is here for results of the mammogram and ultrasound this appears to be benign. Impression: 1. Breast pain left breast upper outer quadrant/12 o'clock position 2. Benign mammogram and ultrasound of the left breast 3. Family history of cancer Plan: 1. avoid caffeine 2. [place] oil 3. Repeat bilateral mammogram in 1 year 4. Follow-up sooner if any questions or concerns CC: Dr. Bandar Liu
== END | disposition home or self-care (01) ==
LOC: WWCWWP 08:58
PROVIDERS: ATTEND Surgery
DX: Z53.9 Procedure and treatment not carried out, unspecified reason (principal)

== ENCOUNTER → 2019-09-08 | Outpatient (CLI) | payer MEDICARE | END | disposition home or self-care (01) | LOC: LABWHC1 11:22 | PROVIDERS: ATTEND Internal Medicine Interventional Cardiology | DX: R06.02 Shortness of breath (principal) | CPT/HCPCS: 36415; 84484 ==

== ENCOUNTER → 2019-10-13 | Outpatient (CLI) | payer MEDICARE ==
[2019-10-13 17:06] LABS: HGB 13.4 gm/dL (11.4-16.0); MCHC 32.7 g/dL (31.0-37.0); MCV 94.6 fL (80.0-100.0); Mean Platelet Volume 6.7; Platelet Count 265 k/uL (150-450); RBC 4.34 m/uL (3.80-5.40); WBC 7.4 k/uL (3.8-10.6)
[2019-10-13 17:09] LABS: African American GFR (CKD) >90 (>60 ml/min/1.73 sqM); Anion Gap 7 mmol/L; Blood Urea Nitrogen 13 mg/dL (7-17); Carbon Dioxide 29 mmol/L (22-30); Chloride 102 mmol/L (98-107); Non-African American GFR(CKD) >90 (>60 ml/min/1.73 sqM); Potassium 4.2 mmol/L (3.5-5.1); Sodium 138 mmol/L (137-145)
== END | disposition home or self-care (01) ==
LOC: LABPAT 16:12
PROVIDERS: ATTEND Internal Medicine Interventional Cardiology
DX: Z01.812 Encounter for preprocedural laboratory examination (principal); R07.9 Chest pain, unspecified
CPT/HCPCS: 80051; 82565; 84520; 85027